=== PATIENT | male | born 1985 | race Caucasian/White ===

== ENCOUNTER 2021-12-06 12:44 | Emergency (ER) | payer SELFPAY ==
--- NOTE | 2021-12-06 12:50 | ED.NAVMDI ---
HPI - Nausea/Vomiting/Diarrhea General Chief complaint: Nausea/Vomiting/Diarrhea Stated complaint: Nausea Time Seen by Provider: 12/06/21 12:50 Source: patient Mode of arrival: ambulatory Limitations: no limitations History of Present Illness HPI Narrative: Mr. Jenkins is a 36-year-old male patient presenting to the clinic today with complaints of nausea and vomiting x3 days. He reports he has vomited a total of 3 times over the last 3 days. States he has not vomited today however he does feel nauseated. He denies any fever, chills, abdominal pain, diarrhea, or blood in stool. States his last bowel movement was yesterday and it was normal for him. Also reports that he is passing gas. No recent weight loss. Related Data Allergies Allergy/AdvReac Type Severity Reaction Status Date / Time No Known Allergies Allergy Verified 12/06/21 12:59 Review of Systems Review of Systems: Pertinent positives per HPI. Patient denies any fever, chills, rash, headache, visual changes, dizziness, cough, runny nose, sore throat, shortness of breath, chest pain, palpitations, vomiting, diarrhea, constipation, abdominal pain, or any urinary issues. PMFSH Comments At the time of my signature, I reviewed and agree with the nursing past medical, surgical, social, and family history. There is no relevant family history pertinent to the patient complaint. Exam Narrative: General: Well-developed, well nourished, in no apparent distress. Head: Normocephalic, atraumatic. Cardio: Regular rate and rhythm, s1 and s2 normal, no murmur appreciated. Resp: Clear to auscultation bilaterally, no rhonchi, rales, wheezing or rubs. Abdomen: Soft, pliable, bowel sounds present in all quadrants, non-tender to palpation, no organomegly, no CVAT tenderness. Course Course Emergency Course: Portions of this record may have been created with voice recognition software. Level of Care: Express Care Visit Vital Signs Vital signs: Vital signs reviewed MDM - Nausea/Vomiting/Diarrhea MDM Narrative Medical decision making narrative: At the time of visit patient is resting comfortably on the exam table. I suspect the patient has viral gastritis. He denies any belly pain. He denies any diarrhea or blood in his stool. I will give him a prescription for some Zofran ODT 4 mg every 4-6 hours as needed for nausea. Work note was also given. Supportive measures were discussed with the patient he voiced understanding of discharge instructions and agrees to treatment plan. Differential Diagnosis Differential diagnosis: Likely food poisoning, gastroenteritis, drug-induced nausea and vomiting, dehydration and other (Gastritis) Discharge Plan Discharge Clinical Impression: Nausea & vomiting Qualifiers: Vomiting type: unspecified Qualified Code(s): R11.2 - Nausea with vomiting, unspecified Patient Disposition: Home, Self-Care Condition: Stable Instructions: Antibiotic Form, Acute Nausea and Vomiting (ED) Additional Instructions: Increase fluids and stay well-hydrated May take Zofran 4 mg ODT every 4-6 hours as needed for nausea May take Tylenol/Motrin as needed for any pain Clear liquids x24 hours then advance as tolerated for nausea and vomiting Follow-up with your PCP in 3 to 5 days if symptoms persist or sooner if they worsen Go to the emergency room if symptoms worsen such as abdominal pain, high fever not controlled by Tylenol or Motrin, chest pain, shortness of breath, or diarrhea. Prescriptions: New ondansetron 4 mg tablet,disintegrating 4 mg PO Q6H PRN (Reason: nausea and vomiting) 3 Days Qty: 12 0RF Follow-up/Referrals: PHYSICIAN,[facility] [Primary Care Provider] - Stand Alone Forms: Work/School Release IP Time of Disposition: 13:02 Quality NIHSS Nursing Documentation ED NIHSS nursing documentation: reviewed/agree
[2021-12-06 12:51] VITALS: BP 155/82; PULSE 87; RESP 20; TEMP 36.5; O2SAT 99
== END 2021-12-06 13:05 | disposition home or self-care (01) ==
PROVIDERS: Emergency Provider Nurse Practitioner Family
DX: R11.2 Nausea with vomiting, unspecified (principal)
CPT/HCPCS: 99213; G0463

== ENCOUNTER 2022-01-31 14:39 | Emergency (ER) | payer MEDICAID, SELFPAY ==
[2022-01-31 14:45] VITALS: BP 144/79; PULSE 86; RESP 18; TEMP 36.8; O2SAT 98
--- NOTE | 2022-01-31 15:57 | ED.URI ---
HPI - URI/Sore Throat General Chief Complaint: Upper Respiratory Infection Stated Complaint: fever congestion watery eyes Time Seen by Provider: 01/31/22 15:57 Source: patient, RN notes reviewed and old records reviewed Mode of arrival: ambulatory Limitations: no limitations History of Present Illness HPI Narrative: 36 year old male who presents to [facility] with 4-5 days of watery eyes,sore throat, nasal congestion and drainage,body aches, fatigue and headaches. Patient reports no COVID vaccinations or flu shot,he did take home Covid which was negative. He has been taking DayQuil and Ibuprofen for his symptoms.itial fever is gone. Patient reports that his initial fever is gone. MD elicited complaint: sore throat, rhinorrhea, nasal congestion and other (headache,fatigue and body aches) Onset (ago): day(s) (4-5 days) Pain scale (0-10): 3 Treatments prior to arrival: ibuprofen and other (DayQuil) Related Data Allergies Allergy/AdvReac Type Severity Reaction Status Date / Time No Known Allergies Allergy Verified 01/31/22 15:02 Review of Systems Review of Systems: CONSTITUTIONAL: Denies malaise, chills, sweats, or fever. EYES: Denies visual changes, redness, or discharge.eyes watery ENT: Reports rhinorrhea, congestion, sinus pain,no otalgia positive sore throat. CARDIOVASCULAR: Denies chest pain, palpitations, or edema. RESPIRATORY: no cough.? Denies dyspnea. GASTROINTESTINAL: Denies abdominal pain, nausea, vomiting, diarrhea SKIN: Denies rash or itching. MUSCULOSKELETAL: Reports myalgia. NEUROLOGIC:Reports headache. All systems reviewed & are unremarkable except as noted in HPI and below PMFSH Social History Social History (Updated 02/06/22 @ 09:38 by Ting Klein NP) Smoking packs per day: 1 Smoking cigarettes per day: 20.0 Years smoked: 11 Smoking pack-years: 11.00 Smoking status: Current every day smoker Alcohol intake: never Substance use type: does not use Living arrangements: with family Gender identity (if verbalized by the patient): Male Comments At time of signature, agree with nursing past medical, surgical, social and family history. There is no relevant family history pertinent to the presenting complaint Exam Narrative: GENERAL: Well-appearing, well-nourished, and in no acute distress. HEAD: Normocephalic EYES: PERRLA, conjunctivae clear ENT: Nares clear, turbinates edematous and erythematous, greenish tinged discharge. Mucous membranes moist. TM pearly bee with dull light reflex bilaterally; no tragal tenderness. Oropharynx erythematous without lesions. Tonsils enlarged and with exudate, no drooling, no hoarseness, no trismus, uvula midline. NECK: Supple, lymphadenopathy CHEST: Clear to auscultation, breath sounds equal. No wheezing, rhonchi, rales, or stridor. No respiratory distress, speaks in full sentences.SAO2 98% on room air HEART: Regular rate and rhythm. No murmur heard. SKIN: Warm, dry, no rash. NEURO: Alert and oriented x3. PSYCH: Normal mood and affect Course Course Emergency Course: Patient is aware of diagnosis, understands and agrees to treatment plan.? Anticipatory guidance given.? Patient agrees to follow-up as directed and is aware of reasons to seek care at the emergency department. Portions of this record may have been created with voice recognition software Level of Care: Express Care Visit Vital Signs Vital signs: Vital Signs Temperature 36.8 C 01/31/22 14:45 Pulse Rate 86 01/31/22 14:45 Respiratory Rate 18 01/31/22 14:45 Blood Pressure 144/79 H 01/31/22 14:45 Pulse Oximetry 98 01/31/22 14:45 Oxygen Delivery Room Air 01/31/22 14:45 Temperature 36.8 C 01/31/22 14:45 Pulse Rate 86 01/31/22 14:45 Respiratory Rate 18 01/31/22 14:45 Blood Pressure 144/79 H 01/31/22 14:45 Pulse Oximetry 98 01/31/22 14:45 Oxygen Delivery Room Air 01/31/22 14:45 Reviewed MDM - URI/Sore Throat M
== END 2022-01-31 16:10 | disposition home or self-care (01) ==
PROVIDERS: Emergency Provider Registered Nurse
DX: J06.9 Acute upper respiratory infection, unspecified (principal); Z20.828 Contact with and (suspected) exposure to other viral communicable diseases
CPT/HCPCS: 87081; 87804; 87880; 99213; G0463

== ENCOUNTER 2022-08-11 08:53 | Emergency (ER) | payer BC, SELFPAY ==
[2022-08-11 08:56] VITALS: BP 153/77; PULSE 85; RESP 20; TEMP 36.9; O2SAT 98
--- NOTE | 2022-08-11 09:30 | ED.DENTAL ---
HPI - Dental/Oral General Chief complaint: Dental/Oral Stated complaint: tooth pain Time Seen by Provider: 08/11/22 09:30 Source: patient, RN notes reviewed and old records reviewed Mode of arrival: ambulatory Limitations: no limitations History of Present Illness HPI Narrative: 37 year old male presents to [facility] care with complaints of dental pain to the left upper posterior molar since last night with gum red and swollen around tooth with obvious decay to tooth. Patient has numerous broken off teeth and poor dentition. Patient reports that he has been taking Ibuprofen for his discomfort with some relief. Patient reports that he does not have dentist, list given. Patient denies any difficulty with his breathing or with swallowing, no trismus noted. MD Complaint: tooth pain Location: Tooth # (15) Onset (ago): day(s) (2) Duration: constant Severity scale (1-10): 8 Treatment prior to arrival: oral analgesic Related Data Allergies Allergy/AdvReac Type Severity Reaction Status Date / Time No Known Allergies Allergy Verified 08/11/22 09:13 Review of Systems Review of Systems: CONSTITUTIONAL: Denies fever, chills, or sweats. ENT: Denies rhinorrhea, congestion, sore throat, or otalgia. Reports dental pain to #15 tooth with swelling of gum and redness around tooth. no trismus noted,poor dentition CARDIOVASCULAR: Denies chest pain, palpitations, or edema. RESPIRATORY: Denies cough or dyspnea. SKIN: Denies rash or itching. MUSCULOSKELETAL: Denies myalgia. NEUROLOGIC: Denies headache All systems reviewed & are unremarkable except as noted in HPI and below PMFSH Past Medical History Medical History History of dental problems Social History Social History (Updated 02/06/22 @ 09:38 by Ting Klein NP) Smoking packs per day: 1 Smoking cigarettes per day: 20.0 Years smoked: 11 Smoking pack-years: 11.00 Smoking status: Current every day smoker Alcohol intake: never Substance use type: does not use Living arrangements: with family Gender identity (if verbalized by the patient): Male Comments At time of signature, agree with nursing past medical, surgical, social and family history. There is no relevant family history pertinent to the presenting complaint Exam Narrative: GENERAL: Well-appearing, well-nourished, and in no acute distress. HEAD: Normocephalic, atraumatic. EYES: PERRLA and EOMI. ENT: Nares clear, no rhinorrhea or epistaxis. Mucous membranes moist. Missing teeth, broken teeth, caries noted. Swelling and redness of gum around #15 tooth with numerous broken teeth and caries, no Gurinder angina or trismus noted, no facial swelling NECK: Supple. no lymphadenopathy CHEST: Clear to auscultation. No respiratory distress.SAO2 98% on room air HEART: Regular rate and rhythm. No murmur heard. Normal peripheral pulses. SKIN: Warm, dry, no rash. NEURO: No focal deficits. Alert and oriented x3. Course Course Emergency Course: Patient is aware of diagnosis, understands and agrees to treatment plan. Anticipatory guidance given. Patient agrees to follow-up as directed and is aware of reasons to seek care at the emergency department. Portions of this record may have been created with voice recognition software Level of Care: Express Care Visit Vital Signs Vital signs: Vital Signs Temperature 36.9 C 08/11/22 08:56 Pulse Rate 85 08/11/22 08:56 Respiratory Rate 20 08/11/22 08:56 Blood Pressure 153/77 H 08/11/22 08:56 Pulse Oximetry 98 08/11/22 08:56 Oxygen Delivery Room Air 08/11/22 08:56 Temperature 36.9 C 08/11/22 08:56 Pulse Rate 85 08/11/22 08:56 Respiratory Rate 20 08/11/22 08:56 Blood Pressure 153/77 H 08/11/22 08:56 Pulse Oximetry 98 08/11/22 08:56 Oxygen Delivery Room Air 08/11/22 08:56 Reviewed MDM - Dental/Oral MDM Narrative Medical decision making narrative: Patients pain and c
== END 2022-08-11 09:43 | disposition home or self-care (01) ==
PROVIDERS: Emergency Provider Registered Nurse
DX: K04.7 Periapical abscess without sinus (principal); F17.210 Nicotine dependence, cigarettes, uncomplicated
CPT/HCPCS: 99213; G0463

== ENCOUNTER 2022-09-26 12:03 | Emergency (ER) | payer BC, SELFPAY ==
--- NOTE | 2022-09-26 12:09 | ED.DENTAL ---
HPI - Dental/Oral General Chief complaint: Dental/Oral Stated complaint: Toothache Source: patient and RN notes reviewed History of Present Illness HPI Narrative: 36-year-old male presents to urgent care with complaints of left upper dental pain. Patient states he feels pressure and his gums mostly when he lies down. Patient states this is going on for last 2-3 days. Patient does admit to being treated for a dental abscess at the beginning of august with penicillin with good relief. Patient states he does not have a dentist and has not called one yet. Denies any fevers, chills, trouble swallowing, trouble breathing. Denies any vomiting. Patient has been taking ibuprofen for pain. Some parts of this dictation were generated by voice recognition software and may contain typographical and/or grammatical inaccuracies. Related Data Allergies Allergy/AdvReac Type Severity Reaction Status Date / Time No Known Allergies Allergy Verified 09/26/22 12:13 Review of Systems Review of Systems: Pertinent positives and pertinent negatives per HPI. [facility] Past Medical History Medical History History of dental problems Social History Social History (Updated 02/06/22 @ 09:38 by Ting Klein NP) Smoking packs per day: 1 Smoking cigarettes per day: 20.0 Years smoked: 11 Smoking pack-years: 11.00 Smoking status: Current every day smoker Alcohol intake: never Substance use type: does not use Living arrangements: with family Gender identity (if verbalized by the patient): Male Comments At the time of my signature, I reviewed and agree with the nursing past medical, surgical, social, and family history. There is no relevant family history pertinent to the patient complaint. Exam Narrative: GENERAL: This is a well-nourished, well-developed patient, in no apparent distress. HEAD: normocephalic, atraumatic. EYES: Sclera clear/white. Vision is grossly intact. EARS: External ears normal, auditory canals clear and without drainage, TMs normal without perforation. Hearing grossly intact. NOSE: External nose normal with no obvious nasal discharge, nares without redness, no rhinorrhea. THROAT: Mucous membranes moist, posterior pharynx clear. Mouth: decayed teeth noted with gu swelling around tooth #16. NECK: Neck supple, non-tender without lymphadenopathy, masses or thyromegaly. CARDIOVASCULAR: Regular rate RESPIRATORY: No respiratory distress SKIN: warm, intact with no suspicious lesions or rash, good texture and turgor. NEURO: awake, alert, and oriented to person, place and time. There were no obvious focal neurologic abnormalities. Course Course Level of Care: Express Care Visit Vital Signs Vital signs: Vital Signs Temperature 97.8 F 09/26/22 12:12 Pulse Rate 75 09/26/22 12:12 Respiratory Rate 16 09/26/22 12:12 Blood Pressure 140/78 09/26/22 12:12 Pulse Oximetry 100 09/26/22 12:12 Oxygen Delivery Room Air 09/26/22 12:12 Temperature 97.8 F 09/26/22 12:14 Pulse Rate 75 09/26/22 12:14 Respiratory Rate 16 09/26/22 12:14 Blood Pressure 140/78 09/26/22 12:14 Pulse Oximetry 100 09/26/22 12:14 Oxygen Delivery Room Air 09/26/22 12:14 reviewed. MDM - Dental/Oral MDM Narrative Medical decision making narrative: May call Tyrel @ the [address] [address] hrs: Mon-Fri 8:30-5:00 Sat 8-noon [facility] [phone] JORDAN Ramos Differential Diagnosis Differential diagnosis: Likely dental caries, toothache and dental abscess Critical Care Time Critical Care Time Critical Care Time: No Discharge Plan Discharge Clinical Impression: Dental abscess Patient Disposition: Home, Self-Care Condition: Stable Instructions: Antibiotic Form, Dental Abscess (ED) Additional Instructions: May call
[2022-09-26 12:12] VITALS: BP 140/78; PULSE 75; RESP 16; TEMP 36.6; O2SAT 100
[2022-09-26 12:14] VITALS: BP 140/78; PULSE 75; RESP 16; TEMP 36.6; O2SAT 100
== END 2022-09-26 12:17 | disposition home or self-care (01) ==
PROVIDERS: Emergency Provider Nurse Practitioner Family
DX: K04.7 Periapical abscess without sinus (principal); F17.210 Nicotine dependence, cigarettes, uncomplicated
CPT/HCPCS: 99213; G0463

== ENCOUNTER 2022-12-15 09:32 | Emergency (ER) | payer BC, SELFPAY ==
[2022-12-15 09:46] VITALS: BP 141/69; PULSE 68; RESP 20; TEMP 36.6; O2SAT 99
--- NOTE | 2022-12-15 10:28 | ED.DENTAL ---
HPI - Dental/Oral General Chief complaint: Dental/Oral Stated complaint: tooth pain Source: patient and RN notes reviewed History of Present Illness HPI Narrative: 37 yo M presents to urgent care with complaints of left upper dental pain and swelling. Pt states this started last night. Pt has had an abscess in this area 2x this past summer. Denies any other complaints. Has not called a dentist but states he will this time. Related Data Allergies Allergy/AdvReac Type Severity Reaction Status Date / Time No Known Allergies Allergy Verified 09/26/22 12:13 Review of Systems Review of Systems: CONSTITUTIONAL: Denies fever, chills, or sweats. EYES: Denies visual changes, redness, or discharge. ENT: Denies otalgia and sore throat MOUTH: left upper dental pain and swelling CARDIOVASCULAR: Denies chest pain, palpitations, or edema. RESPIRATORY: Denies cough or dyspnea. GASTROINTESTINAL: Denies abdominal pain, nausea, vomiting, or diarrhea. GENITOURINARY: Denies dysuria or hematuria. SKIN: Denies rash or itching. MUSCULOSKELETAL: Denies back pain, joint pain, or myalgia. NEUROLOGIC: Denies headache, numbness, or weakness. Pertinent positives per HPI. [facility] Past Medical History Medical History History of dental problems Social History Social History (Updated 02/06/22 @ 09:38 by Ting Klein NP) Smoking packs per day: 1 Smoking cigarettes per day: 20.0 Years smoked: 11 Smoking pack-years: 11.00 Smoking status: Current every day smoker Alcohol intake: never Substance use type: does not use Living arrangements: with family Gender identity (if verbalized by the patient): Male Comments At the time of my signature, I reviewed and agree with the nursing past medical, surgical, social, and family history. There is no relevant family history pertinent to the patient complaint. Exam Narrative: GENERAL: This is a well-nourished, well-developed patient, in no apparent distress. HEAD: normocephalic, atraumatic. EYES: Sclera clear/white. Vision is grossly intact. EARS: External ears normal, auditory canals clear and without drainage. Hearing grossly intact. NOSE: External nose normal with no obvious nasal discharge, nares without redness, no rhinorrhea. THROAT: Mucous membranes moist, posterior pharynx clear. MOUTH: left facial swelling. Abscess with exudate noted to tooth # 14. NECK: Neck supple, non-tender without lymphadenopathy, masses or thyromegaly. CARDIOVASCULAR: Regular rate and rhythm without murmurs, gallops, or rubs. RESPIRATORY: Clear to auscultation. Breath sounds equal bilaterally. No wheezes, rales, or rhonchi. SKIN: warm, intact with no suspicious lesions or rash, good texture and turgor. NEURO: awake, alert, and oriented to person, place and time. There were no obvious focal neurologic abnormalities. Course Course Level of Care: Express Care Visit Vital Signs Vital signs: Vital Signs Temperature 97.8 F 12/15/22 09:46 Pulse Rate 68 12/15/22 09:46 Respiratory Rate 20 12/15/22 09:46 Blood Pressure 141/69 H 12/15/22 09:46 Pulse Oximetry 99 12/15/22 09:46 Oxygen Delivery Room Air 12/15/22 09:46 Temperature 97.8 F 12/15/22 09:46 Pulse Rate 68 12/15/22 09:46 Respiratory Rate 20 12/15/22 09:46 Blood Pressure 141/69 H 12/15/22 09:46 Pulse Oximetry 99 12/15/22 09:46 Oxygen Delivery Room Air 12/15/22 09:46 Reviewed MDM - Dental/Oral MDM Narrative Medical decision making narrative: Take antibiotic until it's gone. Brushing teeth at least twice daily with gentle flossing. Avoid temperature extremes when you eat. Salt gargle to rinse your mouth after every meal You may apply ice to the face to reduce pain/swelling. For pain, you may take: Tylenol 650-1000mg by mouth every 4-6 hours. Do not exceed 4000mg in 24 hours. Advil (Ibuprofen) 600 mg by mouth every 6 hours. Do
== END 2022-12-15 10:43 | disposition home or self-care (01) ==
PROVIDERS: Emergency Provider Nurse Practitioner Family
DX: K04.7 Periapical abscess without sinus (principal); F17.210 Nicotine dependence, cigarettes, uncomplicated
CPT/HCPCS: 99213; G0463